=== PATIENT | male | born 1985 ===

== ENCOUNTER 2016-10-22 13:06 | Emergency (ER) | payer BC ==
--- NOTE | 2016-10-22 14:19 | UC ---
Throat Pain/Nasal Cooper HPI - HPI Summary HPI Summary: ST in spots that feels like it moves around (from side to side and sometimes in the middle) for the last couple weeks. When he originally got sick he had 2-3 days of vomiting and diarrhea, then developed nasal congestion and cough. Has 3 and 4-year-olds who had URI sx and are improving. had URI sx with persistent cough and wound up taking prednisone and zithromax. ST feels like it is not getting better at all. Denies trouble breathing. - History of Current Complaint Hx Obtained From: Patient Onset/Duration: Gradual Onset, Lasting Weeks Cough: Nonproductive Associated Signs & Symptoms: Positive: Nasal Discharge - resolved. Negative: Fever, Vomiting, Rash <Joselyn Rodrigez - Last Filed: 10/22/16 14:42> <Jewell Moreno - Last Filed: 10/23/16 09:36> - History of Current Complaint Chief Complaint: UCRespiratory Stated Complaint: SORE THROAT Time Seen by Provider: 10/22/16 13:58 - Allergies/Home Medications Allergies/Adverse Reactions: Allergies Allergy/AdvReac Type Severity Reaction Status Date / Time No Known Allergies Allergy Verified 10/22/16 13:25 Home Medications: Home Medications NK [No Home Medications Reported] 10/22/16 [History Confirmed 10/22/16] PMH/Surg Hx/FS Hx/Imm Hx Cardiovascular History: Hypertension - takes BP at home - Surgical History Surgical History: None - Family History Known Family History: Positive: Hypertension - Social History Occupation: Employed Full-time Lives: With Family Alcohol Use: Occasionally Substance Use Type: None Smoking Status (MU): Former Smoker <Joselyn Rodrigez - Last Filed: 10/22/16 14:42> Review of Systems Constitutional: Negative Skin: Negative Eyes: Negative ENT: Sore Throat, Nasal Discharge Respiratory: Cough Cardiovascular: Negative Gastrointestinal: Vomiting, Diarrhea Genitourinary: Negative Motor: Negative Neurovascular: Negative Musculoskeletal: Negative Neurological: Negative Psychological: Negative All Other Systems Reviewed And Are Negative: Yes <Joselyn Rodrigez - Last Filed: 10/22/16 14:42> Physical Exam Triage Information Reviewed: Yes Appearance: Well-Appearing, No Pain Distress, Well-Nourished Vital Signs: Initial Vital Signs Temp 97.8 F 10/22/16 13:26 Pulse 88 10/22/16 13:26 Resp 18 10/22/16 13:26 BP 160/111 10/22/16 13:26 Pulse Ox 99 10/22/16 13:26 Vital Signs Reviewed: Yes Eye Exam: Normal Eyes: Positive: Conjunctiva Clear ENT: Positive: Pharyngeal erythema, TMs normal. Negative: Nasal congestion, Nasal drainage, Tonsillar exudate Dental Exam: Normal Neck exam: Normal Neck: Positive: Supple, Nontender, No Lymphadenopathy Respiratory Exam: Normal Respiratory: Positive: Chest non-tender, Lungs clear, Normal breath sounds, No respiratory distress, No accessory muscle use Cardiovascular Exam: Normal Cardiovascular: Positive: RRR, No Murmur Musculoskeletal Exam: Normal Neurological Exam: Normal Neurological: Positive: Alert Psychological Exam: Normal Skin Exam: Normal <Joselyn Rodrigez - Last Filed: 10/22/16 14:42> Vital Signs: Initial Vital Signs Temp 97.8 F 10/22/16 13:26 Pulse 88 10/22/16 13:26 Resp 18 10/22/16 13:26 BP 160/111 10/22/16 13:26 Pulse Ox 99 10/22/16 13:26 <Jewell Moreno - Last Filed: 10/23/16 09:36> Throat Pain/Nasal Course/Dx - Differential Dx/Diagnosis Provider Diagnoses: pharyngitis. elevated blood pressure due to pain <Joselyn Rodrigez - Last Filed: 10/22/16 14:42> Discharge <Joselyn Rodrigez - Last Filed: 10/22/16 14:42> <Jewell Moreno - Last Filed: 10/23/16 09:36> - Discharge Plan Condition: Stable Disposition: HOME Patient Education Materials: Pharyngitis (ED) Referrals: Jenaro Cervantes DO [Primary Care Provider] - 1 Week Additional Instructions: As we discussed, you may need further testing if your sore throat does not resolve on its own. You have declined mono testing here today -- this is fine, since there is no treatment for mono, but you should not ignore symptoms that do not start to improve within the next week. Attestation Statement Provider Attestation: I was available for consult. This patient was seen by the advanced practice provider. The patient was not presented to, seen by, or examined by me.-Ramos <Jewell Moreno - Last Filed: 10/23/16 09:36>
== END 2016-10-22 14:48 | disposition home or self-care (01) ==
LOC: UCEAST 13:06
DX: J02.9 Acute pharyngitis, unspecified (principal); R03.0 Elevated blood-pressure reading, without diagnosis of hypertension; Z87.891 Personal history of nicotine dependence
CPT/HCPCS: 87651; 99201; G0463